=== PATIENT | male | born 1985 | race Caucasian/White ===

== ENCOUNTER → 2018-11-14 07:28 | Outpatient (CLI) | payer BC, SELFPAY ==
--- NOTE | 2018-11-14 07:46 | RAD_ITS ---
STUDY: X-RAY CHEST REASON FOR EXAM: Male, 33 years old. History of synovial sarcoma TECHNIQUE: Frontal and lateral views of the chest. COMPARISON: January 26, 2015 FINDINGS: The lungs are clear and expanded. There is postoperative change in the left mid lung. Stable left pleural thickening. Normal size heart. Normal mediastinum and medhat. Normal visualized pulmonary arteries. Normal visualized aortic arch and descending thoracic aorta. Normal visualized thoracic spine. Normal visualized ribs, clavicles, and shoulders. There is no demonstrated abnormality of the visualized soft tissue structures of the upper abdomen. RAD/Chest PA and Lateral IMPRESSION: Stable left pleural thickening and postoperative change. No focal infiltrate. Electronically Signed: Tommy Orozco MD at 23:53 EDT , Service support ,
[2018-11-14 10:29] LABS: Absolute Lymphocyte Count 1.36 X10^3/ul (0.83-4.51); Absolute Neutrophil Count 1.9 X10^3/uL (2.0-7.7); Basophil# 0.02 X10^3/uL; Basophil% 0.5 % (0-1); Eosinophil# 0.09 X10^3/uL; Eosinophils% 2.4 % (0-5); Hematocrit 45.7 % (40-54); Hemoglobin 15.3 g/dl (13.0-16.5); Lymphocyte # 1.36 X10^3/ul (4.0); Lymphocyte % 36.9 % (19-41); Mean Corp Hgb Conc 33.5 g/gl (32-36); Mean Corpuscular Volume 89.6 fL (80-94); Mean Platelet Vol. 9.5 fl (6.2-12.0); Monocyte# 0.29 X10^3/uL; Monocyte% 7.9 % (0-10); Neutrophil # 1.93 X10^3/uL (2.7-7.7); Neutrophil % 52.3 % (47-70); Platelet Count 288 K/mm3 (150-450); RBC Distribution Width CV 12.4 % (11.6-14.6); RBC Distribution Width SD 40.4 fl (35.1-43.9); White Blood Count 3.7 K/mm3 (4.4-11.0)
[2018-11-14 10:31] LABS: POSITIVE COUNT NO; POSITIVE DIFFERENTIAL NO; POSITIVE MORPHOLOGY NO
[2018-11-14 10:52] LABS: Anion Gap 5 (5-15); BUN 13 mg/dL (7-18); BUN/Creat Ratio 13.2 RATIO (10-20); Calcium,Total 8.7 mg/dL (8.5-10.1); Chloride 104 mmol/L (98-107); Cholesterol 144 mg/dL (200); Creatinine, Serum 0.98 mg/dL (0.70-1.30); EST Glomerular Filtration Rate 94 mL/min (>60); Est Glom Filt Rate - Afr Amer 114 mL/min (>60); Glucose 94 mg/dL (74-106); High Density Lipoprotein 73 mg/dL; Potassium 4.7 mmol/L (3.5-5.1); Sodium Level 141 mmol/L (136-145); Triglycerides 40 mg/dL; Very Low Density Lipoprotein 8 mg/dL (5-40)
== END ==
LOC: MTLAB 07:33
PROVIDERS: Family Provider Family Medicine; PCP Family Medicine; Referring Provider Family Medicine; Visit Provider Family Medicine
DX: Z00.00 Encounter for general adult medical examination without abnormal findings (principal); Z13.220 Encounter for screening for lipoid disorders; C49.9 Malignant neoplasm of connective and soft tissue, unspecified
CPT/HCPCS: 36415; 71046; 80048; 80061; 85025

== ENCOUNTER → 2020-11-25 18:23 | Outpatient (CLI) | payer BC, SELFPAY ==
--- NOTE | 2020-11-25 18:25 | US_ITS ---
INDICATION: LT MEDIAL CALF PAIN/ MASS EXAMINATION: Left Lower extremity nonvascular ultrasound. HISTORY: Pain/mass TECHNIQUE: Routine and color duplex imaging. FINDINGS: In the left medial calf at area of palpable concern, there is a 3.6 x 1.2 cm hypoechoic region between 2 layers of muscle. US/Ext Non Vasc Limited/Soft Tiss IMPRESSION: 3.6 cm hypoechoic region in between two layers of muscle at area of concern. This could represent a tear/hematoma. Recommend correlation for history of trauma and short term follow-up ultrasound to document resolution. Electronically Signed: Ravindra Lorenzana MD at 19:39 EDT Tel , Service support ,
== END ==
LOC: US 18:26
PROVIDERS: PCP Family Medicine; Referring Provider Family Medicine; Visit Provider Family Medicine
DX: M79.662 Pain in left lower leg (principal)
CPT/HCPCS: 76882

== ENCOUNTER → 2021-03-29 | Outpatient (CLI) | payer BC, SELFPAY ==
[2021-03-29 16:27] LABS: Probe Check PASS; Specimen Processing Control PASS
== END | disposition home or self-care (01) ==
LOC: LABSPEC 13:42
PROVIDERS: PCP Family Medicine; Referring Provider Family Medicine; Visit Provider Family Medicine
DX: J02.9 Acute pharyngitis, unspecified (principal)
CPT/HCPCS: 87635; U0005; U0003

== ENCOUNTER 2021-08-17 10:48 | Outpatient (CLI) | payer BC, SELFPAY ==
--- NOTE | 2021-08-17 10:51 | RAD_ITS ---
STUDY: X-RAY - RIGHT HAND REASON FOR EXAM: Male, 35 years old. Pain following injury. TECHNIQUE: 3 view(s) of the hand. COMPARISON: None. FINDINGS: Normal radiocarpal articulation. Normal distal radioulnar joint. Normal visualized carpal bones. Normal carpal articulations Normal carpometacarpal articulation of the thumb. Normal second through fifth carpometacarpal joints. Nondisplaced transverse fracture of the distal aspect of the fifth metacarpal with dorsal angulation and overlying soft tissue swelling. Normal metacarpophalangeal joint of the thumb. Normal interphalangeal joint of the thumb. Normal proximal and distal phalanges of the thumb. Normal metacarpophalangeal joints of the second through fifth fingers. Normal proximal and distal interphalangeal joints of the second through fifth fingers. Normal phalanges of the second through fifth fingers. Soft tissue swelling. RAD/Hand Min 3 Views IMPRESSION: Nondisplaced boxer type fracture of the distal fifth metacarpal with overlying soft tissue swelling. Electronically Signed: Carlos Mensah MD at 11:09 EST , Service support ,
== END 2021-08-17 23:59 | disposition short-term general hospital (02) ==
LOC: MTRAD 10:49
PROVIDERS: PCP Family Medicine; Referring Provider Family Medicine; Visit Provider Family Medicine
DX: S62.346A Nondisplaced fracture of base of fifth metacarpal bone, right hand, initial encounter for closed fracture (principal); X58.XXXA Exposure to other specified factors, initial encounter
CPT/HCPCS: 73130